=== PATIENT | female | born 1985 | race Caucasian/White ===

== ENCOUNTER 2018-02-28 15:21 | Inpatient (IN) | payer OTHER ==
[~2018-02-28] VITALS: Ht 180.3 cm; Wt 122.5 kg
== END 2018-03-02 12:46 | DRG 781 ==
LOC: LDR 15:21 → OB/GYN 15:21
PROC: BY4FZZZ Ultrasonography of Third Trimester, Single Fetus (ICD-10-PCS; principal; 2018-02-28)
PROC: 4A1HXCZ Monitoring of Products of Conception, Cardiac Rate, External Approach (ICD-10-PCS; 2018-02-28)
DX: O14.03 Mild to moderate pre-eclampsia, third trimester (principal); Z3A.35 35 weeks gestation of pregnancy

== ENCOUNTER 2018-03-12 06:08 | Outpatient (CLI) | payer OTHER ==
[2018-03-12] MEDS ORDERED: IMODIUM A-D2 M2 PO (16:00)
[2018-03-12] MEDS ORDERED: FAMOTIDINE10 MG/1 ML PO (16:00)
[2018-03-12] MEDS ORDERED: Zofran 2MG/ML (2ML) PO (16:01)
== END 2018-03-12 16:52 | disposition home or self-care (01) ==
LOC: OBS/DEL 06:08
DX: O26.893 Other specified pregnancy related conditions, third trimester (principal); K52.89 Other specified noninfective gastroenteritis and colitis; O47.1 False labor at or after 37 completed weeks of gestation; Z34.83 Encounter for supervision of other normal pregnancy, third trimester

== ENCOUNTER 2018-03-28 06:18 | Inpatient (IN) | payer OTHER ==
[~2018-03-28] VITALS: Ht 177.8 cm; Wt 122.0 kg
[~2018-03-28 06:18] MED LIST: FAMOTIDINE10 MG/1 ML PO; IMODIUM A-D2 M2 PO; Zofran 2MG/ML (2ML) PO
== END 2018-03-30 14:30 | DRG 775 ==
LOC: LDR 06:18 → OB/GYN 06:18
PROC: 10E0XZZ Delivery of Products of Conception, External Approach (ICD-10-PCS; principal; 2018-03-28)
PROC: 0HQ9XZZ Repair Perineum Skin, External Approach (ICD-10-PCS; 2018-03-28)
PROC: 3E033VJ Introduction of Other Hormone into Peripheral Vein, Percutaneous Approach (ICD-10-PCS; 2018-03-28)
PROC: 4A1HXCZ Monitoring of Products of Conception, Cardiac Rate, External Approach (ICD-10-PCS; 2018-03-28)
DX: O70.0 First degree perineal laceration during delivery (principal); O99.02 Anemia complicating childbirth; Z3A.39 39 weeks gestation of pregnancy; Z37.0 Single live birth

== ENCOUNTER 2018-05-24 20:18 | Emergency (ER) | payer OTHER ==
[~2018-05-24] VITALS: Ht 180.3 cm; Wt 117.5 kg
== END 2018-05-25 02:01 | disposition home or self-care (01) ==
LOC: ER 20:18
DX: R42 Dizziness and giddiness (principal)

== ENCOUNTER → 2019-02-08 | Emergency (ER) | payer OTHER ==
[~2019-02-08] VITALS: Ht 177.8 cm; Wt 117.9 kg
== END | disposition left against medical advice (07) ==
LOC: ER 21:59
DX: Z53.20 Procedure and treatment not carried out because of patient's decision for unspecified reasons (principal)

== ENCOUNTER 2020-11-12 16:52 | Emergency (ER) | payer OTHER ==
[~2020-11-12] VITALS: Ht 180.3 cm; Wt 121.1 kg
== END 2020-11-12 19:29 | disposition home or self-care (01) ==
LOC: ER 16:52
DX: K21.9 Gastro-esophageal reflux disease without esophagitis (principal)

== ENCOUNTER 2021-10-19 09:02 | Emergency (ER) | payer OTHER ==
[~2021-10-19] VITALS: Ht 177.8 cm; Wt 120.2 kg
[2021-10-19] MEDS ORDERED: NORFLEX100MG PO (13:18)
[2021-10-19] MEDS ORDERED: KETO10TA2 PO (13:18)
== END 2021-10-19 13:33 | disposition home or self-care (01) ==
LOC: ER 09:02
DX: M79.601 Pain in right arm (principal)

== ENCOUNTER 2024-09-20 03:01 | Emergency (ER) | payer OTHER ==
[~2024-09-20] VITALS: Ht 180.3 cm; Wt 123.8 kg
[~2024-09-20 03:01] MED LIST changes: +KETO10TA2 PO; +NORFLEX100MG PO
[2024-09-20] MEDS ORDERED: ATORVASTATIN CA10 MG PO (03:07)
[2024-09-20] MEDS ORDERED: FAMOTIDINE/PF 20 MG/2 ML VIAL IV PUSH STA (04:01)
[2024-09-20] MEDS ORDERED: MAG HYDROX/ALUMINUM HYD/SIMETH 30 ML BLIST.PACK PO STA (04:02)
[2024-09-20] MEDS ORDERED: ONDANSETRON HCL 2 MG/ML VIAL IV STA (04:02)
[2024-09-20] MEDS ORDERED: PEPCID40 MG PO (05:21)
[2024-09-20] MEDS ORDERED: PROTONIX40 MG PO (05:21)
== END 2024-09-20 05:24 ==
LOC: ER 03:03
DX: R10.13 Epigastric pain (principal); K21.9 Gastro-esophageal reflux disease without esophagitis; Z91.013 Allergy to seafood